=== PATIENT | male | born 1970 | race African-American/Black ===

== ENCOUNTER 2022-10-10 09:50 | Emergency (ER) | payer MEDICAID, OTHER ==
[~2022-10-10] VITALS: Ht 175.3 cm; Wt 118.0 kg
[2022-10-10 10:07] VITALS: O2SAT 98
[2022-10-10 12:55] LABS: CLARITY URINE CLEAR (CLEAR); COLOR URINE DARK YELLOW (YELLOW); GLUCOSE URINE NEGATIVE (NEGATIVE); KETONES URINE NEGATIVE (NEGATIVE); LEUKOCYTE ESTERASE URINE TRACE (NEGATIVE); NITRITE URINE NEGATIVE (NEGATIVE); OCCULT BLOOD URINE TRACE (NEGATIVE); PH URINE 5.5 (4.5-8.0); PROTEIN URINE 2+ (NEGATIVE)
[2022-10-10 12:58] LABS: WBC URINE 0-2 /hpf (0-2); YEAST URINE NONE SEEN
[2022-10-10 13:20] LABS: BACTERIA URINE RARE; SQUAMOUS EPITHELIAL CELL URINE RARE /lpf (RARE/1+)
[2022-10-10] MEDS ORDERED: KETOROLAC 30MG/ML VIAL IV NR (13:30)
[2022-10-10 13:42] LABS: BASOPHILS % 0.5 % (0.0-2.0); EOSINOPHILS % 0.6 % (0.0-5.0); HEMATOCRIT. 42.4 % (42.0-52.0); HEMOGLOBIN. 13.9 g/dL (14.0-18.0); LYMPHOCYTES % 19.7 % (20.0-50.0); MEAN CORPUSCULAR HEMOGLOBIN 31.1 pg (28.0-32.0); MEAN CORPUSCULAR HGB CONC 32.7 g/dL (31.0-37.0); MEAN CORPUSCULAR VOLUME 95.1 fL (80.0-94.0); MEAN PLATELET VOLUME 7.5 fl (7.4-10.4); MONOCYTES % 10.4 % (2.0-8.0); NEUTROPHILS % 68.8 % (40.0-76.0); PLATELET 237 x1000/uL (130-400); RED BLOOD CELL COUNT 4.46 mill/uL (4.7-6.1); RED CELL DISTRIBUTION WIDTH 13.2 % (11.6-14.6); WHITE BLOOD COUNT 12.1 x1000/uL (4.5-11.0)
[2022-10-10 13:50] LABS: CHLORIDE 108 mEq/L (98-107); INDEX HEMOLYSI 1 (1-3); INDEX ICTERIC 1 (1-4); INDEX LIPEMIC 1 (1-3); POTASSIUM 3.4 mEq/L (3.5-5.1); SODIUM 137 mEq/L (136-145)
[2022-10-10 13:59] LABS: ALANINE AMINOTRANSFERASE 21 IU/L (13-61); ALBUMIN 3.9 g/dL (3.4-5.0); ASPARTATE AMINOTRANSFERASE 17 IU/L (15-37); BILIRUBIN TOTAL 1.4 mg/dL (0.1-1.0); CARBON DIOXIDE 26 mEq/L (21-32); GLUCOSE 105 mg/dL (70-105); PROTEIN TOTAL 7.8 g/dL (6.0-8.3); UREA NITROGEN BLOOD 14 mg/dL (7-21)
[2022-10-10] MEDS ORDERED: IOHEXOL-300 100 ML BOTTLE ONE (16:09)
[2022-10-10] MEDS ORDERED: VANCOMYCIN 1G PREMIX 200 ML IV SCH (16:45)
[2022-10-10] MEDS ORDERED: CEFTRIAXONE 1GM PREMIX 50 ML IV ONE (16:45)
[2022-10-10] MEDS ORDERED: AMOX1TAB16 MT (16:52)
[2022-10-10 19:00] VITALS: BP 148/88; PULSE 78; RESP 18; TEMP 98.7
== END 2022-10-10 19:36 | disposition home or self-care (01) ==
LOC: ER 09:50 → CANBEDREQ 17:59 → ER 19:36
DX: N49.2 Inflammatory disorders of scrotum (principal); I10 Essential (primary) hypertension
CPT/HCPCS: 99285; 96365; 72193; 93976; 96375; 80053; 81003; 85025; 36415; 76870; 96368; Q9967; J0696; J1885; J3370

== ENCOUNTER 2022-10-12 13:49 | Emergency (ER) | payer OTHER ==
[~2022-10-12] VITALS: Ht 177.8 cm; Wt 99.0 kg
[~2022-10-12 13:49] MED LIST: AMOX1TAB16 MT
[2022-10-12 14:03] VITALS: TEMP 98.1; O2SAT 97
[2022-10-12 16:21] LABS: BASOPHILS % 1.1 % (0.0-2.0); EOSINOPHILS % 3.9 % (0.0-5.0); HEMATOCRIT. 40.4 % (42.0-52.0); HEMOGLOBIN. 13.1 g/dL (14.0-18.0); LYMPHOCYTES % 27.8 % (20.0-50.0); MEAN CORPUSCULAR HGB CONC 32.5 g/dL (31.0-37.0); MEAN CORPUSCULAR VOLUME 95.4 fL (80.0-94.0); MEAN PLATELET VOLUME 7.4 fl (7.4-10.4); MONOCYTES % 11.3 % (2.0-8.0); NEUTROPHILS % 55.9 % (40.0-76.0); PLATELET 247 x1000/uL (130-400); RED BLOOD CELL COUNT 4.24 mill/uL (4.7-6.1); RED CELL DISTRIBUTION WIDTH 12.8 % (11.6-14.6); WHITE BLOOD COUNT 6.3 x1000/uL (4.5-11.0)
[2022-10-12 16:27] LABS: CHLORIDE 111 mEq/L (98-107); INDEX HEMOLYSI 1 (1-3); INDEX ICTERIC 1 (1-4); INDEX LIPEMIC 1 (1-3); POTASSIUM 3.3 mEq/L (3.5-5.1); SODIUM 141 mEq/L (136-145)
[2022-10-12 16:34] LABS: ALANINE AMINOTRANSFERASE 25 IU/L (13-61); ALBUMIN 3.6 g/dL (3.4-5.0); ASPARTATE AMINOTRANSFERASE 16 IU/L (15-37); BILIRUBIN TOTAL 0.6 mg/dL (0.1-1.0); CALCIUM 9.2 mg/dL (8.5-10.1); CARBON DIOXIDE 30 mEq/L (21-32); CREATININE 1.1 mg/dL (0.6-1.3); GLUCOSE 125 mg/dL (70-105); PROTEIN TOTAL 7.6 g/dL (6.0-8.3); UREA NITROGEN BLOOD 13 mg/dL (7-21)
[2022-10-12] MEDS ORDERED: KETOROLAC 15MG/ML VIAL IV ONE ×2 (19:15→21:30)
[2022-10-12] MEDS ORDERED: LIDOCAINE HCL/PF 1% 10 MG/ML 5ML VIAL INFIL ONE (20:15)
[2022-10-12] MEDS ORDERED: BACITRACIN ZINC OINT UDPKT TOP ONE (20:15)
[2022-10-12] MEDS ORDERED: LIDOCAINE HCL 1% 20ML VIAL (Pyxis) INJ INFIL ONE (20:45)
[2022-10-12] MEDS ORDERED: MIDAZOLAM HCL 2 MG/2 ML VIAL IV ONE (20:45)
[2022-10-12] MEDS ORDERED: MIDAZOLAM HCL 2 MG/2 ML VIAL IV NR (21:00)
[2022-10-12] MEDS ORDERED: T3 PO (21:25)
[2022-10-12 21:35] VITALS: BP 157/91; PULSE 78; RESP 20
== END 2022-10-12 21:49 | disposition home or self-care (01) ==
LOC: ER 14:13
DX: N45.4 Abscess of epididymis or testis (principal); I10 Essential (primary) hypertension
CPT/HCPCS: 80053; 85025; 87070; 87186; 87205; 87077; 36415; 96374; 96376; 99284; J1885; J3490 ×2; Z7610